=== PATIENT | male | born 1975 | race Caucasian/White ===

== ENCOUNTER 2016-12-11 02:40 | Emergency (ER) | payer SELFPAY ==
[2016-12-11 02:44] VITALS: RESP 18; TEMP 98.4
--- NOTE | 2016-12-11 04:54 | EDPHY ---
H & P Stated Complaint: right testicle pain/hernia x2 days Time Seen by Provider: 12/11/16 03:28 HPI/ROS: Chief Complaint: Right groin pain HPI: 41-year-old male has been having right groin pain for the last 2 days. Patient states that he has had similar episodes in the past and feels like his foot test with becomes drawn up in his scrotum in twisted an abnormal angle. Has never seen a physician for this. 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 Patient started having pain yesterday, is a 7/10. It is constant. Is not nose any bulging. No redness. No swelling. No fevers or chills. Has had some lower abdominal pain. No nausea or vomiting. No diarrhea or constipation. No urethral discharge. No burning with urination. ROS: 10 point Review of Systems is negative except as noted in the HPI. PMH: None Social History: Positive smoking, no alcohol, occasional marijuana Family History: non-contributory Physical Exam: Gen: Awake, Alert, No Distress HEENT: Nose: no rhinorrhea Eyes: PERRLA, EOMI Mouth: Moist mucosa Neck: Supple, no JVD Chest: nontender, lungs clear to auscultation Heart: S1, S2 normal, no murmur Abd: Soft, non-tender, no guarding Genital: Testes have normal lie. Has normal cremasteric. There are no rashes or lesions. There is mild bilateral scleral tenderness with mild swelling. No no inject palpable hernias. Back: no CVA tenderness, no midline tenderness Ext: no edema, non-tender Skin: no rash Neuro: CN II-XII intact, Sensation grossly intact, Strength 5/5 in bilateral upper and lower extremities - Personal History Current Tetanus/Diphtheria Vaccine: Yes Current Tetanus Diphtheria and Acellular Pertussis (TDAP): Yes Tetanus Vaccine Date: 3 years ago - Medical/Surgical History Hx Asthma: No Hx Chronic Respiratory Disease: No Hx Diabetes: No Hx Cardiac Disease: No Hx Renal Disease: No Hx Cirrhosis: No Hx Alcoholism: No Hx HIV/AIDS: No Hx Splenectomy or Spleen Trauma: No Other PMH: none - Social History Smoking Status: Current every day smoker Constitutional: Initial Vital Signs Temperature (C) 36.9 C 12/11/16 02:42 Heart Rate 99 12/11/16 02:42 Respiratory Rate 18 12/11/16 02:42 Blood Pressure 156/87 H 12/11/16 02:42 O2 Sat (%) 98 12/11/16 02:42 O2 Delivery Mode Room Air Allergies/Adverse Reactions: acetaminophen Allergy (Intermediate, Verified 08/05/12 11:06) Itching Home Medications: Medication Instructions Recorded NK [No Known Home Meds] 12/11/16 Medical Decision Making - Diagnostics Imaging Results: Scrotal ultrasound shows small bilateral hydroceles, otherwise negative. Per Dr. Love. Imaging: Discussed imaging studies w/ call center agent Radiologist ED Course/Re-evaluation: Repeat examination patient has a soft benign abdomen. No abdominal wall defects noted. No large indirect inguinal hernias noted no tenderness. Ultrasound is negative. Urinalysis is negative. Will discharge with follow up with primary care physician, return for worsening. - Data Points Laboratory Results: 12/11/16 04:35 Urine Color YELLOW Urine Appearance CLEAR Urine pH 6.0 (5.0-7.5) Ur Specific [place] 1.015 (1.002-1.030) Urine Protein NEGATIVE (NEGATIVE) Urine Ketones NEGATIVE (NEGATIVE) Urine Blood NEGATIVE (NEGATIVE) Urine Nitrate NEGATIVE (NEGATIVE) Urine Bilirubin NEGATIVE (NEGATIVE) Urine Urobilinogen NEGATIVE EU EU (0.2-1.0) Ur Leukocyte Esterase NEGATIVE (NEGATIVE) Urine Glucose NEGATIVE (NEGATIVE) Departure - Departure Disposition: Home, Routine, Self-Care Clinical Impression: Groin pain Condition: Good Instructions: Groin Pain (ED) Additional Instructions: You may alternate ibuprofen with acetaminophen as needed for aches and pains. Follow up with primary care physician in 3-4 days for further evaluation. Return emergency depart for increasing pain, redness, swelling, fevers, chills, or any other concerns. Referrals: [facility],. [Clinic] - As per Instructions
[2016-12-11 05:05] LABS: COLOR YELLOW; LEUKOCYTE ESTERASE,URINE NEGATIVE (NEGATIVE); NITRITE,URINE NEGATIVE (NEGATIVE)
[2016-12-11 05:53] VITALS: BP 125/90; PULSE 79; O2SAT 99
== END 2016-12-11 05:53 | disposition home or self-care (01) ==
DX: R10.30 Lower abdominal pain, unspecified (principal); F17.200 Nicotine dependence, unspecified, uncomplicated

== ENCOUNTER 2016-12-27 12:29 | Emergency (ER) | payer SELFPAY ==
--- NOTE | 2016-12-27 12:43 | EDPHY ---
H & P Stated Complaint: L flank pain x 2 days; "I think I have a kidney stone" Time Seen by Provider: 12/27/16 12:42 - Personal History Current Tetanus Diphtheria and Acellular Pertussis (TDAP): Yes Tetanus Vaccine Date: 3 years ago - Medical/Surgical History Hx Asthma: No Hx Chronic Respiratory Disease: No Hx Diabetes: No Hx Cardiac Disease: No Hx Renal Disease: No Hx Cirrhosis: No Hx Alcoholism: No Hx HIV/AIDS: No Hx Splenectomy or Spleen Trauma: No Other PMH: kidney stones - Social History Smoking Status: Current every day smoker Constitutional: Initial Vital Signs Temperature (C) 36.7 C 12/27/16 12:31 Heart Rate 83 12/27/16 12:31 Respiratory Rate 16 12/27/16 12:31 Blood Pressure 134/86 H 12/27/16 12:31 O2 Sat (%) 97 12/27/16 12:31 O2 Delivery Mode Room Air Allergies/Adverse Reactions: No Known Allergies Allergy (Unverified 12/27/16 12:34) Home Medications: Medication Instructions Recorded HYDROcodone/APAP 10/325 [Gallina 1 - 2 each PO Q4-6PRN PRN #20 tab 12/27/16 10/325] Tamsulosin HCl [Flomax 0.4 MG (*)] 0.4 mg PO DAILY #10 cap 12/27/16 Medical Decision Making - Diagnostics Imaging Results: Imaging Impressions Abdomen/Pelvis CT 12/27/16 13:02 Impression: 1. Apparent distal colonic thickening from the midtransverse colon through the rectum, which could be related to colitis or underdistention. 2. Nonobstructing right nephrolithiasis. 3. Additional findings as above. Findings discussed with Teodoro Rodrigues MD 12/27/2016, at 1342 hours. Attention: This CT examination is specifically designed to evaluate patients who are clinically suspected of having acute obstructive uropathy. This examination does not use radiographic contrast, and as such, provides only a limited evaluation of the abdomen, pelvis and retroperitoneum. If there is further clinical suspicion for pathological conditions other than obstructive uropathy, a complete CT evaluation of the abdomen and pelvis utilizing intravenous and oral contrast should be considered. Imaging: Discussed imaging studies w/ call center support representative Radiologist ED Course/Re-evaluation: CHIEF COMPLAINT: Possible kidney stones HISTORY OF PRESENT ILLNESS: This patient is a 41 year old male complaining of left flank pain onset two days ago. He has history of kidney stones two years ago, and states this pain is the same as he felt at that time. His symptoms were resolved with medication at that time. His pain was initially mild and intermittent. He tried drinking lots of water, but his discomfort did not improve. Last night, his pain increased without provocation. Today about two hours ago, he had markedly increased pain in left flank which has begun to move slightly medially. He denies radiation to his groin. He denies fever, vomiting, diarrhea, or other associated symptoms. REVIEW OF SYSTEMS: A 10 point review of systems was performed and is negative with the exception of the elements mentioned in the history of present illness. PHYSICAL EXAM: HR, BP, O2 Sat, RR. Temp noted General Appearance: Alert, well hydrated, appropriate, and non-toxic appearing. Head: Atraumatic without scalp tenderness or obvious injury Eyes: Pupils equal, round, reactive to light and accommodation, EOMI, no trauma , no injection. Ears: Clear bilaterally, no perforation, normal landmarks Nose: Atraumatic, no rhinorrhea, clear. Throat: There is no erythema or exudates, no lesions, normal tonsils, mucus membranes moist. Neck: Supple, nontender, no lymphadenopathy. Respiratory: No retractions, no distress, no wheezes, and no accessory muscle use. Lungs are clear to auscultation bilaterally. Cardiovascular: Regular rate and rhythm, no murmurs, rubs, or gallops. Good capillary refill all extremities. Gastrointestinal: Left flank pain, unchanged with palpation. Abdomen is soft, non-distended, no masses, no rebound, no guarding, no peritoneal signs. Musculoskeletal: Normal active ROM of all extremities, atraumatic. Neurological: Alert, appropriate, and interactive. Nonfocal neuro exam. Skin: No rashes, good turgor, no nodules on palpation. Past medical history: Kidney stones. Past surgical history: Noncontributory Family history: Noncontributory. Social history: Single. Lives in [place]. 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 DIFFERENTIAL DIAGNOSIS: The differential diagnosis for the patient's flank pain included but was not limited to musculoskeletal causes, kidney stone, pyelonephritis, shingles, diverticulitis, appendicitis, and aortic aneurysm. MEDICAL DECISION MAKIN41 year old male presents with two day history of left flank pain. Pain is unchanged with palpation. Plan for labs including UA, CBC, and BMP. Plan for CT abdomen/pelvis. IV established. Plan to administer 30mg IV Toradol for pain relief. Plan to administer 0.4mg PO Flomax for symptom relief. 13:[address] Esteban, radiologist. Nonobstructing right nephrolithiasis noted. Blood present in UA. Labs otherwise unremarkable. Plan to discharge home in good condition with prescriptions for Gallina and Flomax for symptom relief. He will follow up with urology. Return precautions discussed. The patient is comfortable with this plan. - Data Points Laboratory Results: Laboratory Results 12/27/16 13:00 12/27/16 13:00 12/27/16 12/27/16 12/27/16 13:00 13:00 12:55 WBC 8.23 10^3/uL 10^3/uL (3.80-9.50) RBC 4.68 10^6/uL 10^6/uL (4.40-6.38) Hgb 14.6 g/dL g/dL (13.7-17.5) Hct 42.5 % % (40.0-51.0) MCV 90.8 fL fL (81.5-99.8) MCH 31.2 pg pg (27.9-34.1) MCHC 34.4 g/dL g/dL (32.4-36.7) RDW 13.4 % % (11.5-15.2) Plt Count 210 10^3/uL 10^3/uL (150-400) MPV 9.1 fL fL (8.7-11.7) Neut % (Auto) 67.5 % % (39.3-74.2) Lymph % (Auto) 21.3 % % (15.0-45.0) [place] % (Auto) 7.8 % % (4.5-13.0) Eos % (Auto) 2.8 % % (0.6-7.6) Baso % (Auto) 0.4 % % (0.3-1.7) Nucleat RBC Rel Count 0.0 % % (0.0-0.2) Absolute Neuts (auto) 5.56 10^3/uL 10^3/uL (1.70-6.50) Absolute Lymphs (auto) 1.75 10^3/uL 10^3/uL (1.00-3.00) Absolute Monos (auto) 0.64 10^3/uL 10^3/uL (0.30-0.80) Absolute Eos (auto) 0.23 10^3/uL 10^3/uL (0.03-0.40) Absolute Basos (auto) 0.03 10^3/uL 10^3/uL (0.02-0.10) Absolute Nucleated RBC 0.00 10^3/uL 10^3/uL (0-0.01) Immature Gran % 0.2 % % (0.0-1.1) Immature Gran # 0.02 10^3/uL 10^3/uL (0.00-0.10) Sodium 141 mEq/L mEq/L (134-144) Potassium 4.0 mEq/L mEq/L (3.5-5.2) Chloride 108 mEq/L mEq/L (97-110) Carbon Dioxide 22 mEq/l mEq/l (22-31) Anion Gap 11 mEq/L mEq/L (8-16) BUN 15 mg/dL mg/dL (7-23) Creatinine 0.9 mg/dL mg/dL (0.7-1.3) Estimated GFR > 60 Glucose 96 mg/dL mg/dL (70-100) Calcium 9.7 mg/dL mg/dL (8.5-10.4) Urine Color YELLOW Urine Appearance MODERATELY TURBID Urine pH 6.0 (5.0-7.5) Ur Specific [place] 1.023 (1.002-1.030) Urine Protein NEGATIVE (NEGATIVE) Urine Ketones NEGATIVE (NEGATIVE) Urine Blood NEGATIVE (NEGATIVE) Urine Nitrate NEGATIVE (NEGATIVE) Urine Bilirubin NEGATIVE (NEGATIVE) Urine Urobilinogen NEGATIVE EU EU (0.2-1.0) Ur Leukocyte Esterase NEGATIVE (NEGATIVE) Urine RBC 3-5 /hpf H /hpf (0-3) Urine WBC 1-3 /hpf /hpf (0-3) Ur Epithelial Cells TRACE /lpf /lpf (NONE-1+) Amorphous Sediment PRESENT /hpf /hpf (NONE-1+) Urine Mucus 2+ /lpf H /lpf (NONE-1+) Urine Glucose NEGATIVE (NEGATIVE) Medications Given: Discontinued Medications Ketorolac Tromethamine (Toradol) 30 mg IVP EDNOW ONE Stop: 12/27/16 13:04 Last Admin: 12/27/16 13:14 Dose: 30 mg Tamsulosin HCl (Flomax) 0.4 mg PO EDNOW ONE Stop: 12/27/16 13:12 Last Admin: 12/27/16 13:17 Dose: 0.4 mg Departure - Departure Disposition: Home, Routine, Self-Care Clinical Impression: Calculus of left kidney Condition: Good Instructions: Kidney Stones (ED) Additional Instructions: 1. Take your Flomax as prescribed. You may take Gallina as prescribed as needed for severe pain. You may also take Ibuprofen as directed below. 2. Follow up with a urologist within one week. We have referred you to our urologist practice consultant. 3. Return to the emergency department for fever, severe pain, inability to urinate or other concerns. Adult Pain & Fever Control: We recommend Acetaminophen (Tylenol) and Ibuprofen (Motrin,Advil) for pain and fever control. When fever is high or pain severe, both drugs can be used at the same time, but at different intervals. Please note the time differences. Your dose is: Acetaminophen 650mg every 4 to 6 hours Ibuprofen 600mg every 6-8 hours with food Note: do not take Acetaminophen with Hydrocodone (Vicodin, Lortab) or Oxycodone (Percocet). These medications also contain Acetaminophen. No more than 3000mg of Acetaminophen should be taken in 24 hours (for an adult). Referrals: Prem Avendaño MD [Medical Doctor] - As per Instructions Prescriptions: HYDROcodone/APAP 10/325 [Gall[place] 10/325] 1 - 2 each PO Q4-6PRN PRN #20 tab PRN Reason: Pain, Moderate Tamsulosin HCl [Flomax 0.4 MG (*)] 0.4 mg PO DAILY #10 cap Report Scribed for: Teodoro Rodrigues Report Scribed by: Sabiha Vuong Date of Report: 12/27/16 Time of Report: 14:44
[2016-12-27] MEDS ORDERED: KETOROLAC 30 MG/1 ML SDV IVP ONE (13:03)
[2016-12-27] MEDS ORDERED: TAMSULOSIN HCL 0.4 MG CAP PO ONE (13:11)
[2016-12-27 13:12] LABS: COLOR YELLOW; LEUKOCYTE ESTERASE,URINE NEGATIVE (NEGATIVE); NITRITE,URINE NEGATIVE (NEGATIVE)
[2016-12-27 13:16] LABS: % IMMATURE GRANULYOCYTES 0.2 % (0.0-1.1); ABSOLUTE IMMATURE GRANULOCYTES 0.02 10^3/uL (0.00-0.10); ADD DIFF? NO; ADD MORPH? NO; ADD SCAN? NO; ATYPICAL LYMPHOCYTE FLAG 0 (0-99); FRAGMENT RBC FLAG 0 (0-99); HEMATOCRIT 42.5 % (40.0-51.0); HEMOGLOBIN 14.6 g/dL (13.7-17.5); LEFT SHIFT FLG 0 (0-99); LIPEMIA HEMOLYSIS FLAG 90 (0-99); MEAN CELL HEMOGLOBIN 31.2 pg (27.9-34.1); MEAN CELL HEMOGLOBIN CONCENTR. 34.4 g/dL (32.4-36.7); MEAN CELL VOLUME 90.8 fL (81.5-99.8); MEAN PLATELET VOLUME 9.1 fL (8.7-11.7); PLATELET CLUMPS FLAG 0 (0-99); PLATELET COUNT 210 10^3/uL (150-400); RED BLOOD CELL COUNT 4.68 10^6/uL (4.40-6.38); RED CELL DISTRIBUTION WIDTH 13.4 % (11.5-15.2)
[2016-12-27 13:18] LABS: AMORPHOUS PRESENT /hpf (NONE-1+); MUCUS 2+ /lpf (NONE-1+)
[2016-12-27 13:35] LABS: ANION GAP 11 mEq/L (8-16); CALCIUM 9.7 mg/dL (8.5-10.4); CARBON DIOXIDE 22 mEq/l (22-31); CHLORIDE 108 mEq/L (97-110); CREATININE 0.9 mg/dL (0.7-1.3); GLOMERULAR FILTRATION RATE > 60; GLUCOSE 96 mg/dL (70-100); SODIUM 141 mEq/L (134-144)
[2016-12-27 14:13] VITALS: BP 112/66; PULSE 66; RESP 14; TEMP 97.7; O2SAT 95
== END 2016-12-27 14:16 | disposition home or self-care (01) ==
DX: N20.0 Calculus of kidney (principal); F17.200 Nicotine dependence, unspecified, uncomplicated
CPT/HCPCS: 96374; J1885